=== PATIENT | male | born 1935 | race Caucasian/White ===

== ENCOUNTER 2017-05-04 04:08 | Emergency (ER) | payer OTHER ==
[~2017-05-04] VITALS: Ht 182.9 cm; Wt 86.2 kg
[~2017-05-04 04:08] MED LIST: ANTIVERT25 MG PO; APAP500 PO; ASPIRIN325; CLARITIN10 MG PO; COZAAR 50 MG TA50 M2 PO; DOXYCYCLINE 10100 MG PO; HYCET 7.5 MG-3473 ML PO; IMDUR 30 MG TAB30 M1 PO; LISINOPRIL10 MG PO; LOPID600 MG PO; NIACIN500 MG PO; PROMETHAZINE/C118 ML PO; PROSCAR 5MG TABL5 MG PO; REGLAN 10 MG TA10 MG PO; TOPROL XL25 MG PO; ZOCOR20 MG PO
[2017-05-04] MEDS ORDERED: LIPITOR 20 MG T20 M1 PO (04:29)
== END 2017-05-04 06:06 | disposition home or self-care (01) ==
LOC: ER 04:08
DX: M25.561 Pain in right knee (principal); I10 Essential (primary) hypertension; Z88.0 Allergy status to penicillin; Z87.891 Personal history of nicotine dependence

== ENCOUNTER 2017-05-20 11:22 | Emergency (ER) | payer OTHER ==
[~2017-05-20] VITALS: Ht 182.9 cm; Wt 86.2 kg
--- NOTE | ~2017-05-20 | EKG ---
[place] [address] [address] [facility] [place] [address] ELECTROCARDIOGRAM REPORT Name: COURT CROCKER Theresa Room #: [facility]#: [id number] Admission: 05/20/17 Attend Phys: Discharge: Date of : 31 Report #: [id number] THIS REPORT FOR: //name// [facility] ED Test Date: 2017-05-20 Test Time: 14:23:14 Pat Name: COURT CROCKER Department: Room: Gender: M Telephone Station Installer: KKODJOVI : 1935 Requested By: Staci Henry Order Number: [id number] MD: Paramjit Velazquez Measurements Intervals [place] Rate: 44 P: -36 HI: 288 QRS: -26 QRSD: 97 T: 50 QT: 458 QTc: 392 Interpretive Statements Sinus bradycardia Prolonged HI interval Borderline left axis deviation Abnormal R-wave progression, early transition Compared to ECG 12/23/2016 23:25:06 Sinus rhythm no longer present Electronically Signed On 05-20-2017 15:49:26 CDT by Paramjit Velazquez [email or web address] <ELECTRONICALLY SIGNED> By: Paramjit Velazquez MD 05/20/17 1549 1423 1423 Paramjit Velazquez MD /[place]
[~2017-05-20 11:22] MED LIST changes: -ASPIRIN325; +ASPIRIN325 PO; +LIPITOR 20 MG T20 M1 PO
[2017-05-20 13:17] LABS: ABSOLUTE NEUTROPHILS 6.4 thou/uL (1.4-8.2); EOSINOPHILS 2.5 % (0.0-3.0); HEMATOCRIT 41.6 % (42.0-52.0); HEMOGLOBIN 14.1 gm/dL (14.0-18.0); MANUAL DIFF NO; MCH 29.4 pg (26.0-34.0); MCV 86.4 fL (80.0-100.0); MONOCYTES 8.6 % (1.0-8.0); PLATELET COUNT 231 thou/uL (150-400); POLYS 69.9 % (36.0-66.0); RBC 4.81 mil/uL (4.50-6.00); RDW 14.1 % (10.5-14.5); WBC 9.1 thou/uL (4.0-11.0)
[2017-05-20 13:28] LABS: CALCIUM 8.8 mg/dL (8.5-10.1); CREATININE 1.1 mg/dL (0.7-1.3); POTASSIUM 5.7 mmol/L (3.5-5.1)
[2017-05-20 13:31] LABS: ALBUMIN 3.8 g/dL (3.4-5.0); TOTAL BILIRUBIN 0.4 mg/dL (<0.1-1.0); TOTAL PROTEIN 6.7 g/dL (6.4-8.2)
[2017-05-20 13:32] LABS: PROTIME 10.1 Seconds (9.3-11.4)
== END 2017-05-20 17:15 | disposition home or self-care (01) ==
LOC: ER 11:22
PROVIDERS: Physician Assistant
DX: E87.6 Hypokalemia (principal); R51 Headache; I10 Essential (primary) hypertension; Z88.0 Allergy status to penicillin; Z87.891 Personal history of nicotine dependence

== ENCOUNTER 2017-11-25 00:16 | Emergency (ER) | payer OTHER ==
[~2017-11-25] VITALS: Ht 182.9 cm; Wt 86.2 kg
--- NOTE | ~2017-11-25 | EKG ---
[place] [address] [address] [facility] [employer] [place] [address] ELECTROCARDIOGRAM REPORT Name: COURT CROCKER Room #: [facility]#: [id number] Admission: 11/25/17 Attend Phys: Discharge: 11/25/17 Date of : 31 Report #: [id number] THIS REPORT FOR: //name// [facility] ED Test Date: 2017-11-25 Test Time: 00:25:57 Pat Name: COURT CROCKER Department: Room: Gender: M Enrollment Consultant: BRADEN : 1935 Requested By: Mone Garrett Order Number: [id number] MD: Jaquan Yi Measurements Intervals [place] Rate: 49 P: -68 VT: 281 QRS: -30 QRSD: 104 T: 45 QT: 458 QTc: 414 Interpretive Statements Sinus bradycardia Prolonged [place] interval Left axis deviation Abnormal R-wave progression, early transition Baseline wander in lead(s) V1 Compared to ECG 07/12/2017 09:56:18 No significant change was found Electronically Signed On 11-25-2017 8:46:35 CDT by Jaquan Yi [email or web address] <ELECTRONICALLY SIGNED> By: Jaquan Yi MD, [facility] 11/25/17 0846 0025 0025 Jaquan Yi MD, [facility] /EPI
[~2017-11-25 00:16] MED LIST changes: +CENTRUM SILVER1 EAC2 PO; +COLACE100 MG PO; +COZAAR 25 MG TA25 MG PO; +FLONASE 0.05%50 MCG NASAL; +HYDROCHLOROTH12.5 M1 PO; +LORATIDINE 10 M10 M1 PO; +ONDANSETRON HCL4 M2 PO; +TYLENOL325 MG PO; +VITAMINC500 PO
[2017-11-25] MEDS ORDERED: METOPROLOL TART25 MG (00:35)
[2017-11-25 00:57] LABS: ABSOLUTE NEUTROPHILS 6.2 thou/uL (1.4-8.2); EOSINOPHILS 5.6 % (0.0-3.0); HEMOGLOBIN 13.4 gm/dL (14.0-18.0); LYMPHOCYTES 22.5 % (24.0-44.0); MCH 29.9 pg (26.0-34.0); MCHC 34.5 g/dL (28.0-37.0); MCV 86.6 fL (80.0-100.0); MONOCYTES 10.5 % (1.0-8.0); PLATELET COUNT 264 thou/uL (150-400); POLYS 60.4 % (36.0-66.0); RDW 13.9 % (10.5-14.5); WBC 10.2 thou/uL (4.0-11.0)
[2017-11-25 01:01] LABS: ANION GAP 11 mmol/L (7-16); BUN 25 mg/dL (7-18); CHLORIDE 105 mmol/L (98-107); CO2 21 mmol/L (21-32); CREATININE 1.1 mg/dL (0.7-1.3); POTASSIUM 4.7 mmol/L (3.5-5.1); SODIUM 137 mmol/L (136-145)
[2017-11-25 01:09] LABS: TROPONIN-I < 0.04 ng/mL (<0.06)
[2017-11-25 01:10] LABS: GLUCOSE 94 mg/dL (74-106)
== END 2017-11-25 03:44 | disposition home or self-care (01) ==
LOC: ER 00:16
PROVIDERS: Emergency Medicine
DX: R07.9 Chest pain, unspecified (principal); I10 Essential (primary) hypertension; Z88.0 Allergy status to penicillin; Z87.891 Personal history of nicotine dependence

== ENCOUNTER 2018-03-09 00:32 | Inpatient (IN) | payer OTHER ==
[2018-03-09] VITALS (11 sets, daily range): BP systolic 134–167; BP diastolic 56–82
[~2018-03-09] VITALS: Ht 182.9 cm; Wt 86.2 kg
--- NOTE | ~2018-03-09 | 2DMMODE ---
[facility] [address] [place] [address] 2 D/M-MODE ECHOCARDIOGRAM Name: COURT CROCKER Room #: [facility] .R.#: [id number] Admission: 03/09/18 Attend Phys: Wai Ayala MD Discharge: Date of : 31 Date of Service: 03/10/18 1309 Report #: [id number] THIS REPORT FOR: //name// APPROVED REPORT Study performed: 03/10/2018 11:58:30 EXAM: Comprehensive 2D, Doppler, and color-flow Echocardiogram Patient Location: Echo lab Room #: [facility] Status: routine BSA: 2.08 HR: 47 bpm BP: 114/61 mmHg Rhythm: NSR Other Information Study Quality: Adequate Indications CAD Syncope Hypertension/HDD 2D Dimensions RVDd: 39.72 mm LVEF(%): 61.90 (>50%) IVSd: 8.62 (7-11mm) LVOT Diam: 23.18 (18-24mm) LVDd: 56.05 mm PWd: 10.01 (7-11mm) Ascending Ao: 31.16 (22-36mm) LVDs: 37.14 (25-40mm) Aortic Root: 32.68 mm IVC: 19.00 mm Flowers's LVEF: 61.90 % Volumes Left Atrial Volume (Systole) Single Plane 4CH: 59.83 mL Single Plane 2CH: 48.88 mL LA ESV Index: 30.00 mL/m2 Aortic Valve AoV Peak Chester.: 1.19 m/s AO Peak Gr.: 5.66 mmHg LVOT Max P.86 mmHg LVOT Max V: 0.98 m/s SVETLANA Vmax: 3.48 cm2 Mitral Valve [facility] [address] [place] [address] 2 D/M-MODE ECHOCARDIOGRAM Name: COURT CROCKER Room #: 358-[facility].#: [id number] Admission: 03/09/18 Attend Phys: Wai Ayala MD Discharge: Date of : 31 Date of Service: 03/10/18 1309 Report #: [id number] E/A Ratio: 0.7 MV Decel. Time: 415.86 ms MV E Max Chester.: 0.61 m/s MV A Chester.: 0.84 m/s MV PHT: 120.60 ms IVRT: 147.64 ms Pulmonary Valve PV Peak Chester.: 1.11 m/s PV Peak Gr.: 4.91 mmHg Pulmonary Vein P Vein S: 0.36 m/s P Vein A: 0.31 m/s P Vein D: 0.25 m/s P Vein A Dur.: 147.6 msec P Vein S/D Ratio: 1.44 Tricuspid Valve TR Peak Chester.: 2.59 m/s TR Peak Gr.: 26.86 mmHg PA Pressure: 30.00 mmHg Left Ventricle The left ventricle is normal size. There is normal LV segmental wall motion. There is normal left ventricular wall thickness. The left ventricular systolic function is normal. The left ventricular ejection fraction is within the normal range. LVEF is 55-60%. Grade I - abnormal relaxation pattern. Right Ventricle The right ventricle is normal size. The right ventricular systolic function is normal. Atria The left atrium size is normal. The right atrium size is normal. Aortic Valve The aortic valve is normal in structure. Trace aortic regurgitation. There is no aortic valvular stenosis. Mitral Valve The mitral valve is normal in structure. Trace mitral regurgitation. No evidence of mitral valve stenosis. Tricuspid Valve The tricuspid valve is normal in structure. There is trace tricuspid regurgitation. Estimated PAP 30 mmHg. There is no pulmonary [facility] [address] [place] [address] 2 D/M-MODE ECHOCARDIOGRAM Name: COURT CROCKER Room #: [facility]#: [id number] Admission: 03/09/18 Attend Phys: Wai Ayala MD Discharge: Date of : 31 Date of Service: 03/10/18 1309 Report #: [id number] hypertension. Pulmonic Valve The pulmonary valve is normal in structure. Trace pulmonic regurgitation. Great Vessels The aortic root is normal in size. IVC is normal in size and collapses >50% with inspiration. Pericardium There is no pericardial effusion. <Conclusion> The left ventricular systolic function is normal. There is normal LV segmental wall motion. LVEF is 55-60%. Mild diastolic dysfunction The aortic valve is normal in structure. Trace aortic regurgitation, no stenosis The mitral valve is normal in structure. Trace mitral regurgitation. There is trace tricuspid regurgitation. Estimated pulmonary artery pressure of 30 mmHg. There is no pericardial effusion. <ELECTRONICALLY SIGNED> By: Jaquan Yi MD, FACC 03/10/18 1309 1309 1309 Jaquan Yi MD, FACC /INF
--- NOTE | ~2018-03-09 | EKG ---
[address] [place] [address] ELECTROCARDIOGRAM REPORT Name: AJ CROCKERNIS Theresa Room #: 358-P [facility] IN M.R.#: [id number] Admission: 03/09/18 Attend Phys: Sloan Waller MD Discharge: Date of : 31 Report #: [id number] THIS REPORT FOR: //name// [facility] ED Test Date: 2018-03-09 Test Time: 00:51:18 Pat Name: COURT CROCKER Department: Room: 358 Gender: M Technical Instructor: ROLANDO : 1935 Requested By: Kandice Griffin Order Number: [id number] MD: Robert Frias Measurements Intervals [place] Rate: 43 P: 46 NM: 291 QRS: -17 QRSD: 100 T: 61 QT: 468 QTc: 396 Interpretive Statements Sinus bradycardia Prolonged NM interval Borderline left axis deviation Borderline low voltage, extremity leads Baseline wander in lead(s) V4,V6 Compared to ECG 11/25/2017 00:25:57 No significant changes Electronically Signed On 03-09-2018 11:06:03 CDT by Robert Frias [email or web address] <ELECTRONICALLY SIGNED> By: Robert Frias MD 03/09/18 1106 0051 0051 Robert Frias MD /EPI
[~2018-03-09 00:32] MED LIST changes: +METOPROLOL TART25 MG
[2018-03-09 01:30] LABS: ABSOLUTE NEUTROPHILS 6.3 thou/uL (1.4-8.2); EOSINOPHILS 3.1 % (0.0-3.0); HEMATOCRIT 40.8 % (42.0-52.0); HEMOGLOBIN 13.7 gm/dL (14.0-18.0); LYMPHOCYTES 23.3 % (24.0-44.0); MCH 29.1 pg (26.0-34.0); MCHC 33.6 g/dL (28.0-37.0); MCV 86.5 fL (80.0-100.0); MONOCYTES 8.6 % (1.0-8.0); PLATELET COUNT 211 thou/uL (150-400); RBC 4.72 mil/uL (4.50-6.00); RDW 13.7 % (10.5-14.5); WBC 9.8 thou/uL (4.0-11.0)
[2018-03-09 01:33] LABS: CALCIUM 8.6 mg/dL (8.5-10.1); CREATININE 1.2 mg/dL (0.7-1.3); POTASSIUM 4.9 mmol/L (3.5-5.1)
[2018-03-09 13:15] LABS: ABSOLUTE NEUTROPHILS 6.6 thou/uL (1.4-8.2); EOSINOPHILS 2.3 % (0.0-3.0); HEMATOCRIT 40.2 % (42.0-52.0); HEMOGLOBIN 13.7 gm/dL (14.0-18.0); LYMPHOCYTES 18.8 % (24.0-44.0); MCH 29.4 pg (26.0-34.0); MCHC 34.1 g/dL (28.0-37.0); MCV 86.3 fL (80.0-100.0); MONOCYTES 7.6 % (1.0-8.0); PLATELET COUNT 202 thou/uL (150-400); POLYS 70.3 % (36.0-66.0); RBC 4.66 mil/uL (4.50-6.00); RDW 13.8 % (10.5-14.5); WBC 9.4 thou/uL (4.0-11.0)
[2018-03-09 13:29] LABS: ANION GAP 7 mmol/L (7-16); BUN 24 mg/dL (7-18); CALCIUM 9.2 mg/dL (8.5-10.1); CHLORIDE 105 mmol/L (98-107); CO2 24 mmol/L (21-32); GLUCOSE 140 mg/dL (74-106); MAGNESIUM 1.7 mg/dL (1.8-2.4); SODIUM 136 mmol/L (136-145); TROPONIN-I <0.06 ng/mL (<0.06)
[2018-03-10 05:31] LABS: CALCIUM 9.2 mg/dL (8.5-10.1); CREATININE 1.1 mg/dL (0.7-1.3); POTASSIUM 4.9 mmol/L (3.5-5.1)
[2018-03-10 05:37] LABS: ABSOLUTE NEUTROPHILS 6.1 thou/uL (1.4-8.2); BASOPHILS 0.5 % (0.0-2.0); EOSINOPHILS 3.4 % (0.0-3.0); HEMATOCRIT 39.4 % (42.0-52.0); HEMOGLOBIN 13.4 gm/dL (14.0-18.0); LYMPHOCYTES 20.8 % (24.0-44.0); MCH 29.4 pg (26.0-34.0); MCV 86.3 fL (80.0-100.0); MONOCYTES 8.7 % (1.0-8.0); PLATELET COUNT 212 thou/uL (150-400); POLYS 66.6 % (36.0-66.0); RBC 4.57 mil/uL (4.50-6.00); WBC 9.1 thou/uL (4.0-11.0)
[2018-03-10 05:45] VITALS: BP 121/67
[2018-03-10 05:47] VITALS: BP 125/61
[2018-03-10 05:50] VITALS: BP 128/59
[2018-03-10 07:37] VITALS: BP 114/61
[2018-03-10 16:20] VITALS: BP 114/61
== END 2018-03-10 17:03 | disposition home health service (06) | DRG 310 ==
LOC: ER 00:32 → 3W 03:32 → EROBS 03:32 → 3W 04:24 → ENTRNSPT 03-10 16:40 → 3W 03-10 17:03
PROVIDERS: Emergency Medicine; Hospitalist
DX: R00.1 Bradycardia, unspecified (principal); I10 Essential (primary) hypertension; R20.2 Paresthesia of skin; Z60.2 Problems related to living alone; N40.0 Benign prostatic hyperplasia without lower urinary tract symptoms; I25.10 Atherosclerotic heart disease of native coronary artery without angina pectoris; Z95.5 Presence of coronary angioplasty implant and graft; Z88.0 Allergy status to penicillin; Z87.891 Personal history of nicotine dependence; Z79.82 Long term (current) use of aspirin; Z79.899 Other long term (current) drug therapy
CPT/HCPCS: 10779

== ENCOUNTER 2018-07-15 16:07 | Emergency (ER) | payer OTHER ==
[~2018-07-15] VITALS: Ht 182.9 cm; Wt 86.2 kg
--- NOTE | ~2018-07-15 | EKG ---
[address] [address] ELECTROCARDIOGRAM REPORT Name: COURT CROCKER Room #: [facility]#: [id number] Admission: 07/15/18 Attend Phys: Discharge: 07/15/18 Date of : 31 Report #: [id number] THIS REPORT FOR: //name// [facility] ED Test Date: 2018-07-15 Test Time: 16:47:14 Pat Name: COURT CROCKER Department: Room: Gender: M Deputy Court Clerk: ROMÁN : 1935 Requested By: Lalita Rossi Order Number: [id number] MD: Robert Frias Measurements Intervals [place] Rate: 53 P: 15 MN: 266 QRS: -37 QRSD: 101 T: 63 QT: 421 QTc: 396 Interpretive Statements Sinus rhythm Atrial premature complex Prolonged [place] interval Left axis deviation Compared to ECG 03/09/2018 00:51:18 Atrial premature complex(es) now present Sinus bradycardia no longer present Electronically Signed On 07-16-2018 8:17:16 DELIVERY REP by Robert Frias [email or web address] <ELECTRONICALLY SIGNED> By: Robert Frias MD 07/16/18 0817 46 46 Robert Frias MD /[place]
[2018-07-15 17:01] LABS: ABSOLUTE NEUTROPHILS 6.6 thou/uL (1.4-8.2); BASOPHILS 1.1 % (0.0-2.0); EOSINOPHILS 3.1 % (0.0-3.0); HEMATOCRIT 43.5 % (42.0-52.0); HEMOGLOBIN 14.7 gm/dL (14.0-18.0); LYMPHOCYTES 17.2 % (24.0-44.0); MCH 29.2 pg (26.0-34.0); MCHC 33.7 g/dL (28.0-37.0); MCV 86.5 fL (80.0-100.0); MONOCYTES 9.2 % (1.0-8.0); PLATELET COUNT 269 thou/uL (150-400); POLYS 69.4 % (36.0-66.0); RBC 5.02 mil/uL (4.50-6.00); RDW 14.2 % (10.5-14.5); WBC 9.4 thou/uL (4.0-11.0)
[2018-07-15 17:12] LABS: ANION GAP 9 mmol/L (7-16); BUN 32 mg/dL (7-18); CALCIUM 8.8 mg/dL (8.5-10.1); CHLORIDE 105 mmol/L (98-107); CO2 22 mmol/L (21-32); CREATININE 1.1 mg/dL (0.7-1.3); GLUCOSE 140 mg/dL (74-106); POTASSIUM 5.4 mmol/L (3.5-5.1); SODIUM 136 mmol/L (136-145)
[2018-07-15 17:20] LABS: TROPONIN-I <0.06 ng/mL (<0.06)
[2018-07-15 17:34] LABS: ALBUMIN 3.7 g/dL (3.4-5.0); DIRECT BILIRUBIN 0.1 mg/dL (<0.1-0.3); TOTAL BILIRUBIN 0.4 mg/dL (<0.1-1.0)
[2018-07-15 18:49] LABS: URINE BILIRUBIN NEGATIVE (Negative); URINE BLOOD NEGATIVE (Negative); URINE CLARITY CLEAR; URINE COLOR YELLOW; URINE GLUCOSE-RANDOM* NEGATIVE (Negative); URINE KETONES NEGATIVE (Negative); URINE LEUKOCYTES-REFLEX NEGATIVE (Negative); URINE NITRITE-REFLEX NEGATIVE (Negative); URINE PROTEIN (DIPSTICK) NEGATIVE (Negative); URINE UROBILINOGEN 0.2 E.U./dl (0.2-1.0)
[2018-07-15] MEDS ORDERED: ZOFRAN ODT4 MG PO (19:08)
[2018-07-15 19:32] VITALS: BP 149/61
== END 2018-07-15 19:32 | disposition home or self-care (01) ==
LOC: ER 16:07
PROVIDERS: Physician Assistant; Student in an Organized Health Care Education/Training Program
DX: R11.2 Nausea with vomiting, unspecified (principal); R19.7 Diarrhea, unspecified; I10 Essential (primary) hypertension; Z87.891 Personal history of nicotine dependence; Z88.0 Allergy status to penicillin; Z95.5 Presence of coronary angioplasty implant and graft; Z96.651 Presence of right artificial knee joint

== ENCOUNTER → 2018-08-22 | Outpatient (CLI) | payer OTHER ==
[~2018-08-22] MED LIST changes: +ZOFRAN ODT4 MG PO
== END ==
LOC: ULTRA 09:47
DX: I10 Essential (primary) hypertension (principal); R42 Dizziness and giddiness; R10.819 Abdominal tenderness, unspecified site; R55 Syncope and collapse

== ENCOUNTER 2018-08-23 18:01 | Emergency (ER) | payer OTHER ==
[~2018-08-23] VITALS: Ht 185.4 cm; Wt 88.5 kg
[2018-08-23 19:02] LABS: ABSOLUTE NEUTROPHILS 5.6 thou/uL (1.4-8.2); BASOPHILS 0.8 % (0.0-2.0); HEMATOCRIT 41.1 % (42.0-52.0); HEMOGLOBIN 14.1 gm/dL (14.0-18.0); LYMPHOCYTES 20.3 % (24.0-44.0); MCH 29.5 pg (26.0-34.0); MCHC 34.3 g/dL (28.0-37.0); MCV 86.1 fL (80.0-100.0); MONOCYTES 8.8 % (1.0-8.0); PLATELET COUNT 227 thou/uL (150-400); POLYS 67.1 % (36.0-66.0); RBC 4.77 mil/uL (4.50-6.00); RDW 14.1 % (10.5-14.5); WBC 8.4 thou/uL (4.0-11.0)
[2018-08-23 19:09] LABS: CALCIUM 8.9 mg/dL (8.5-10.1); CREATININE 1.4 mg/dL (0.7-1.3); POTASSIUM 5.2 mmol/L (3.5-5.1); SALICYLATE 7.5 mg/dL (2.8-20.0)
[2018-08-23 20:02] VITALS: BP 157/74
== END 2018-08-23 20:02 | disposition home or self-care (01) ==
LOC: ER 18:01
PROVIDERS: Student in an Organized Health Care Education/Training Program
DX: R51 Headache (principal); I10 Essential (primary) hypertension; Z95.5 Presence of coronary angioplasty implant and graft; Z96.651 Presence of right artificial knee joint; Z87.891 Personal history of nicotine dependence; Z88.0 Allergy status to penicillin

== ENCOUNTER → 2018-09-10 | Outpatient (CLI) | payer OTHER ==
[2018-09-10 09:38] LABS: CREATININE 1.3 mg/dL (0.7-1.3)
== END ==
LOC: MRI 08:59
PROVIDERS: Otolaryngology
DX: J34.1 Cyst and mucocele of nose and nasal sinus (principal); H90.3 Sensorineural hearing loss, bilateral; H93.19 Tinnitus, unspecified ear

== ENCOUNTER 2019-01-16 16:28 | Emergency (ER) | payer OTHER ==
[~2019-01-16] VITALS: Ht 182.9 cm; Wt 88.5 kg
[2019-01-16 17:25] LABS: HEMATOCRIT 40.4 % (42.0-52.0); HEMOGLOBIN 13.6 gm/dL (14.0-18.0); MCH 29.3 pg (26.0-34.0); MCHC 33.6 g/dL (28.0-37.0); RBC 4.65 mil/uL (4.50-6.00); RDW 13.8 % (10.5-14.5)
[2019-01-16 17:35] LABS: ANION GAP 12 mmol/L (7-16); BUN 34 mg/dL (7-18); CALCIUM 8.8 mg/dL (8.5-10.1); CHLORIDE 107 mmol/L (98-107); CO2 21 mmol/L (21-32); CREATININE 1.1 mg/dL (0.7-1.3); GLUCOSE 92 mg/dL (74-106); POTASSIUM 5.4 mmol/L (3.5-5.1); SODIUM 140 mmol/L (136-145)
[2019-01-16 17:44] LABS: ALBUMIN 3.7 g/dL (3.4-5.0); SGOT 19 U/L (15-37); SGPT 20 U/L (30-65); TOTAL BILIRUBIN 0.5 mg/dL (<0.1-1.0); TOTAL PROTEIN 6.9 g/dL (6.4-8.2); TROPONIN-I <0.06 ng/mL (<0.06)
[2019-01-16 18:02] LABS: URINE BILIRUBIN NEGATIVE (Negative); URINE BLOOD NEGATIVE (Negative); URINE CLARITY CLEAR; URINE COLOR YELLOW; URINE GLUCOSE-RANDOM* NEGATIVE (Negative); URINE KETONES NEGATIVE (Negative); URINE LEUKOCYTES-REFLEX NEGATIVE (Negative); URINE NITRITE-REFLEX NEGATIVE (Negative); URINE PROTEIN (DIPSTICK) NEGATIVE (Negative)
[2019-01-16 18:34] VITALS: BP 137/63
--- NOTE | 2019-01-17 11:03 | EKG ---
[address] [place] [address] ELECTROCARDIOGRAM REPORT Name: COURT CROCKER Room #: [facility]#: [id number] ������������������ Admission: 01/16/19 ������������������ Attend Phys: Discharge: 01/16/19 ������������������ Date of : 31 Report #: [id number] ����������������������������������������������������������������� [id number] THIS REPORT FOR: //name// [facility] ED Test Date: 2019-01-16 Test Time: 16:43:35 Pat Name: COURT CROCKER Department: Room: Gender: M Transmission Maintenance Supervisor: VANI : 1935 Requested By: Lalita Rossi Order Number: [id number] MD: Robert Frias Measurements Intervals [place] Rate: 55 P: 10 WV: 226 QRS: -27 QRSD: 97 T: 54 QT: 412 QTc: 394 Interpretive Statements Sinus rhythm Prolonged [place] interval Borderline left axis deviation Borderline low voltage, extremity leads Compared to ECG 07/15/2018 16:47:14 Atrial premature complex(es) no longer present Electronically Signed On 01-17-2019 11:03:26 CDT by Robert Frias [email or web address] ��������������������������������������������� <ELECTRONICALLY SIGNED> ���������������������������������������� By: Robert Frias MD ��������������������������������������������� 01/17/19 1103 42 42 Robert Frias MD /[place]
== END 2019-01-16 18:34 | disposition home or self-care (01) ==
LOC: ER 16:28
PROVIDERS: Student in an Organized Health Care Education/Training Program
DX: R20.2 Paresthesia of skin (principal); R42 Dizziness and giddiness; R53.1 Weakness; R20.0 Anesthesia of skin; I10 Essential (primary) hypertension; Z96.651 Presence of right artificial knee joint; Z95.5 Presence of coronary angioplasty implant and graft; Z87.891 Personal history of nicotine dependence; Z88.0 Allergy status to penicillin

== ENCOUNTER 2019-03-18 08:36 | Emergency (ER) | payer OTHER ==
[~2019-03-18] VITALS: Ht 182.9 cm; Wt 86.2 kg
[2019-03-18 08:49] LABS: ABSOLUTE NEUTROPHILS 5.4 thou/uL (1.4-8.2); EOSINOPHILS 3.6 % (0.0-3.0); HEMATOCRIT 42.4 % (42.0-52.0); HEMOGLOBIN 14.3 gm/dL (14.0-18.0); LYMPHOCYTES 19.7 % (24.0-44.0); MCH 28.9 pg (26.0-34.0); MCHC 33.6 g/dL (28.0-37.0); MCV 85.9 fL (80.0-100.0); MONOCYTES 7.2 % (1.0-8.0); PLATELET COUNT 217 thou/uL (150-400); POLYS 68.5 % (36.0-66.0); RBC 4.94 mil/uL (4.50-6.00); RDW 13.7 % (10.5-14.5); WBC 7.9 thou/uL (4.0-11.0)
[2019-03-18 08:56] LABS: ANION GAP 11 mmol/L (7-16); BUN 21 mg/dL (7-18); CALCIUM 10.1 mg/dL (8.5-10.1); CHLORIDE 103 mmol/L (98-107); CO2 22 mmol/L (21-32); CREATININE 1.2 mg/dL (0.7-1.3); GLUCOSE 118 mg/dL (74-106); POTASSIUM 4.9 mmol/L (3.5-5.1); SODIUM 136 mmol/L (136-145)
[2019-03-18] MEDS ORDERED: FISH OIL 1,001000 M2 PO (08:58)
[2019-03-18] MEDS ORDERED: NAPROSYN500 MG PO (08:59)
[2019-03-18] MEDS ORDERED: ASPIR 8181 MG PO (08:59)
[2019-03-18] MEDS ORDERED: PROSCAR 5MG TABL5 MG PO (09:03)
[2019-03-18 09:05] LABS: TROPONIN-I <0.06 ng/mL (<0.06)
[2019-03-18 11:35] VITALS: BP 148/49
--- NOTE | 2019-03-19 07:23 | EKG ---
[place] [address] [facility] [place] [address] ELECTROCARDIOGRAM REPORT Name: COURT CROCKER Room #: [facility]#: [id number] Admission: 03/18/19 Attend Phys: Discharge: 03/18/19 Date of : 31 Report #: [id number] THIS REPORT FOR: //name// [facility] ED Test Date: 2019-03-18 Test Time: 08:15:55 Pat Name: COURT CROCKER Department: Room: Gender: M Master Plumber: PIO : 1935 Requested By: Wilder El Order Number: [id number] MD: Jaquan Yi Measurements Intervals [place] Rate: 53 P: 37 [place]: 187 QRS: -24 QRSD: 102 T: 63 QT: 415 QTc: 390 Interpretive Statements Sinus rhythm Borderline left axis deviation Baseline wander in lead(s) V5 Compared to ECG 01/16/2019 16:43:35 First degree AV block no longer present Electronically Signed On 03-19-2019 7:23:30 CDT by Jaquan Yi [email or web address] <ELECTRONICALLY SIGNED> By: Jaquan Yi MD, [facility] 03/19/19 07 4 4 Jaquan Yi MD, [facility] /EPI
== END 2019-03-18 11:35 | disposition home or self-care (01) ==
LOC: ER 08:36
PROVIDERS: Emergency Medicine
DX: R07.2 Precordial pain (principal); I10 Essential (primary) hypertension; E78.5 Hyperlipidemia, unspecified; E78.00 Pure hypercholesterolemia, unspecified; Z87.891 Personal history of nicotine dependence; Z88.0 Allergy status to penicillin; Z95.5 Presence of coronary angioplasty implant and graft; Z96.651 Presence of right artificial knee joint

== ENCOUNTER → 2019-07-16 | Outpatient (CLI) | payer OTHER ==
[~2019-07-16] MED LIST changes: +ASPIR 8181 MG PO; +FISH OIL 1,001000 M2 PO; +NAPROSYN500 MG PO
[2019-07-16 08:41] LABS: CREATININE 1.2 mg/dL (0.7-1.3)
== END ==
LOC: CAT 08:03
PROVIDERS: Surgery
DX: I65.23 Occlusion and stenosis of bilateral carotid arteries (principal)

== ENCOUNTER 2020-03-30 17:45 | Emergency (ER) | payer OTHER ==
[~2020-03-30] VITALS: Ht 182.9 cm; Wt 86.2 kg
[2020-03-30] MEDS ORDERED: FLOMAX0.4 MG PO (18:38)
[2020-03-30] MEDS ORDERED: HYDRALAZINE 5050 MG PO ×2 (18:39→22:28)
[2020-03-30 20:24] LABS: ABSOLUTE NEUTROPHILS 6.2 thou/uL (1.4-8.2); BASOPHILS 1.3 % (0.0-2.0); EOSINOPHILS 2.9 % (0.0-3.0); HEMATOCRIT 39.6 % (42.0-52.0); LYMPHOCYTES 19.4 % (24.0-44.0); MCH 28.4 pg (26.0-34.0); MCHC 32.9 g/dL (28.0-37.0); MCV 86.5 fL (80.0-100.0); MONOCYTES 8.5 % (1.0-8.0); PLATELET COUNT 227 thou/uL (150-400); POLYS 67.9 % (36.0-66.0); RBC 4.58 mil/uL (4.50-6.00); RDW 14.5 % (10.5-14.5); WBC 9.1 thou/uL (4.0-11.0)
[2020-03-30 20:36] LABS: ANION GAP 9 mmol/L (7-16); BUN 21 mg/dL (7-18); CALCIUM 8.7 mg/dL (8.5-10.1); CHLORIDE 106 mmol/L (98-107); CO2 24 mmol/L (21-32); CREATININE 0.9 mg/dL (0.7-1.3); GLUCOSE 99 mg/dL (74-106); POTASSIUM 4.5 mmol/L (3.5-5.1); SODIUM 139 mmol/L (136-145)
[2020-03-30 20:38] LABS: APTT 30.3 Seconds (24.5-32.8); PROTIME 10.7 Seconds (9.3-11.4)
[2020-03-30 20:42] LABS: TROPONIN-I <0.06 ng/mL (<0.06)
[2020-03-30 22:55] VITALS: BP 141/54
--- NOTE | 2020-03-31 09:13 | EKG ---
[facility] [place] [address] ELECTROCARDIOGRAM REPORT Name: COURT CROCKER Room #: [facility]#: [id number] Admission: 03/30/20 Attend Phys: Discharge: 03/30/20 Date of : 31 Report #: [id number] THIS REPORT FOR: cc: Cassie Haddad DNP, Mary E. DNP Couchonnal, Luis F. MD ~ THIS REPORT FOR: //name// [facility] ED Test Date: 2020-03-30 Test Time: 18:26:49 Pat Name: COURT CROCKER Department: Room: Gender: Crop Specialist: : 1935 Requested By: Kandice Griffin Order Number: [id number] MD: Paramjit Velazquez Measurements Intervals [place] Rate: 49 P: 2 SC: 314 QRS: -40 QRSD: 104 T: 40 QT: 452 QTc: 409 Interpretive Statements Sinus bradycardia Atrial premature complex Prolonged [place] interval Left anterior fascicular block Compared to ECG 03/18/2019 08:15:55 Atrial premature complex(es) now present First degree AV block now present Left anterior fascicular block now present Sinus rhythm no longer present Electronically Signed On 03-31-2020 9:13:11 CDT by Paramjit Velazquez [email or web address] <ELECTRONICALLY SIGNED> By: Paramjit Velazquez MD 03/31/20912 25 25 Paramjit Velazquez MD /[place]
== END 2020-03-30 23:35 | disposition home or self-care (01) ==
LOC: ER 17:45
PROVIDERS: Emergency Medicine
DX: I10 Essential (primary) hypertension (principal); E78.5 Hyperlipidemia, unspecified; Z79.899 Other long term (current) drug therapy; Z88.0 Allergy status to penicillin; Z87.891 Personal history of nicotine dependence

== ENCOUNTER 2020-04-11 00:28 | Emergency (ER) | payer OTHER ==
[~2020-04-11] VITALS: Ht 190.5 cm; Wt 86.2 kg
[~2020-04-11 00:28] MED LIST changes: +FLOMAX0.4 MG PO; +HYDRALAZINE 5050 MG PO
[2020-04-11] MEDS ORDERED: NORVASC 2.5 MG2.5 M1 PO (00:36)
[2020-04-11 00:48] LABS: BASOPHILS 1.3 % (0.0-2.0); HEMATOCRIT 40.8 % (42.0-52.0); HEMOGLOBIN 13.8 gm/dL (14.0-18.0); LYMPHOCYTES 24.2 % (24.0-44.0); MCH 29.1 pg (26.0-34.0); MCHC 33.8 g/dL (28.0-37.0); MCV 86.2 fL (80.0-100.0); PLATELET COUNT 226 thou/uL (150-400); POLYS 60.5 % (36.0-66.0); RBC 4.73 mil/uL (4.50-6.00); RDW 14.6 % (10.5-14.5)
[2020-04-11 00:54] LABS: ANION GAP 9 mmol/L (7-16); BUN 25 mg/dL (7-18); CALCIUM 8.8 mg/dL (8.5-10.1); CHLORIDE 105 mmol/L (98-107); CO2 26 mmol/L (21-32); CREATININE 1.4 mg/dL (0.7-1.3); GLUCOSE 100 mg/dL (74-106); POTASSIUM 4.6 mmol/L (3.5-5.1); SODIUM 140 mmol/L (136-145)
[2020-04-11 01:04] LABS: ALBUMIN 3.5 g/dL (3.4-5.0); SGOT 17 U/L (15-37); SGPT 22 U/L (30-65); TOTAL BILIRUBIN 0.5 mg/dL (0.2-1.0); TOTAL PROTEIN 6.7 g/dL (6.4-8.2); TROPONIN-I <0.06 ng/mL (<0.06)
[2020-04-11 04:26] VITALS: BP 145/66
--- NOTE | 2020-04-11 10:20 | EKG ---
[facility] [place] [address] ELECTROCARDIOGRAM REPORT Name: COURT CROCKER Room #: [facility]#: [id number] Admission: 04/11/20 Attend Phys: Discharge: 04/11/20 Date of : 31 Report #: [id number] THIS REPORT FOR: cc: Cassie Haddad DNP, Mary E. DNP Lundgren, Craig H. MD [facility] ~ THIS REPORT FOR: //name// [facility] ED Test Date: 2020-04-11 Test Time: 00:34:41 Pat Name: COURT CROCKER Department: Room: Gender: Professor Of Communication And Writing: [place] [id number] : 1935 Requested By: Adrian Aguillon Order Number: [id number] MD: Jaquan iY Measurements Intervals [place] Rate: 52 P: 0 VA: 338 QRS: -43 QRSD: 100 T: 45 QT: 458 QTc: 426 Interpretive Statements Sinus bradycardia Prolonged [place] interval Left anterior fascicular block Abnormal R-wave progression, early transition Compared to ECG 03/30/2020 18:26:49 No significant change was found Electronically Signed On 04-11-2020 10:20:47 CDT by Jaquan Yi [email or web address] <ELECTRONICALLY SIGNED> By: Jaquan Yi MD, [facility] 04/11/20 1020 0034 0034 Jaquan Yi MD, [facility] /EPI
== END 2020-04-11 04:37 | disposition home or self-care (01) ==
LOC: ER 00:28
PROVIDERS: Emergency Medicine
DX: R07.89 Other chest pain (principal); I10 Essential (primary) hypertension; E78.5 Hyperlipidemia, unspecified; Z98.890 Other specified postprocedural states; Z96.651 Presence of right artificial knee joint; Z95.5 Presence of coronary angioplasty implant and graft; Z79.82 Long term (current) use of aspirin; Z79.899 Other long term (current) drug therapy; Z88.0 Allergy status to penicillin; Z87.891 Personal history of nicotine dependence

== ENCOUNTER 2020-04-16 09:53 | Emergency (ER) | payer OTHER ==
[~2020-04-16] VITALS: Ht 182.9 cm; Wt 81.7 kg
[~2020-04-16 09:53] MED LIST changes: +NORVASC 2.5 MG2.5 M1 PO
[2020-04-16 10:27] LABS: ABSOLUTE NEUTROPHILS 6.9 thou/uL (1.4-8.2); BASOPHILS 1.2 % (0.0-2.0); EOSINOPHILS 1.6 % (0.0-3.0); HEMATOCRIT 41.2 % (42.0-52.0); HEMOGLOBIN 13.7 gm/dL (14.0-18.0); MCHC 33.4 g/dL (28.0-37.0); MCV 86.8 fL (80.0-100.0); MONOCYTES 7.3 % (1.0-8.0); PLATELET COUNT 213 thou/uL (150-400); POLYS 73.9 % (36.0-66.0); RBC 4.74 mil/uL (4.50-6.00); RDW 14.7 % (10.5-14.5); WBC 9.4 thou/uL (4.0-11.0)
[2020-04-16 10:40] LABS: CALCIUM 9.1 mg/dL (8.5-10.1); POTASSIUM 4.2 mmol/L (3.5-5.1)
[2020-04-16 11:51] VITALS: BP 143/60
== END 2020-04-16 11:44 | disposition home or self-care (01) ==
LOC: ER 09:53
PROVIDERS: Emergency Medicine
DX: R20.2 Paresthesia of skin (principal); I10 Essential (primary) hypertension; E78.5 Hyperlipidemia, unspecified; Z79.82 Long term (current) use of aspirin; Z79.899 Other long term (current) drug therapy; Z87.891 Personal history of nicotine dependence; Z88.0 Allergy status to penicillin

== ENCOUNTER 2020-04-29 16:37 | Emergency (ER) | payer OTHER ==
[~2020-04-29] VITALS: Ht 182.9 cm; Wt 81.7 kg
[2020-04-29 17:00] VITALS: BP 91/57
--- NOTE | 2020-04-30 04:20 | NUR ---
04/29/20201944 VERBALIZED UNDERSTANDING OF DISCHARGE INSTRUCTIONS. SON HERE TO TRANSPORT PATIENT HOME. TAKEN TO CAR VIA WHEELCHAIR. BP 175/90, PULSE 54, RESP 20, PULSE OX 100% ON ROOM AIR.
== END 2020-04-29 19:49 | disposition home or self-care (01) ==
LOC: ER 16:37
DX: Z48.01 Encounter for change or removal of surgical wound dressing (principal); I10 Essential (primary) hypertension; E78.5 Hyperlipidemia, unspecified; Z79.82 Long term (current) use of aspirin; Z79.899 Other long term (current) drug therapy; Z87.891 Personal history of nicotine dependence; Z88.0 Allergy status to penicillin

== ENCOUNTER 2020-10-02 08:34 | Emergency (ER) | payer OTHER ==
[~2020-10-02] VITALS: Ht 182.9 cm; Wt 81.7 kg
[2020-10-02] MEDS ORDERED: HYDROCODON-ACE1 EAC7 PO (09:33)
[2020-10-02] MEDS ORDERED: MEDROLDOSEPACK PO (09:33)
[2020-10-02 10:20] VITALS: BP 127/59
== END 2020-10-02 10:20 | disposition home or self-care (01) ==
LOC: ER 08:34
DX: M25.562 Pain in left knee (principal); I10 Essential (primary) hypertension; E78.5 Hyperlipidemia, unspecified; Z87.891 Personal history of nicotine dependence; Z79.82 Long term (current) use of aspirin; Z79.899 Other long term (current) drug therapy; Z88.0 Allergy status to penicillin

== ENCOUNTER 2021-02-26 08:30 | Emergency (ER) | payer OTHER ==
[~2021-02-26] VITALS: Ht 182.9 cm; Wt 81.7 kg
[~2021-02-26 08:30] MED LIST changes: +HYDROCODON-ACE1 EAC7 PO; +MEDROLDOSEPACK PO
[2021-02-26] MEDS ORDERED: PROSCAR 5MG TABL5 M1 PO (08:41)
[2021-02-26] MEDS ORDERED: HYDRALAZINE 5050 MG PO (08:42)
[2021-02-26 09:00] LABS: ABSOLUTE NEUTROPHILS 7.7 thou/uL (1.4-8.2); BASOPHILS 0.9 % (0.0-2.0); EOSINOPHILS 2.6 % (0.0-3.0); HEMATOCRIT 42.2 % (42.0-52.0); LYMPHOCYTES 16.1 % (24.0-44.0); MCH 29.1 pg (26.0-34.0); MCHC 33.2 g/dL (28.0-37.0); MCV 87.7 fL (80.0-100.0); MONOCYTES 6.2 % (1.0-8.0); PLATELET COUNT 225 thou/uL (150-400); POLYS 74.2 % (36.0-66.0); RBC 4.81 mil/uL (4.50-6.00); RDW 13.9 % (10.5-14.5); WBC 10.4 thou/uL (4.0-11.0)
[2021-02-26 09:06] LABS: CALCIUM 9.3 mg/dL (8.5-10.1); CREATININE 1.1 mg/dL (0.7-1.3); POTASSIUM 4.8 mmol/L (3.5-5.1)
[2021-02-26 10:36] VITALS: BP 147/67
== END 2021-02-26 10:38 | disposition home or self-care (01) ==
LOC: ER 08:30
PROVIDERS: Emergency Medicine
DX: I10 Essential (primary) hypertension (principal); R51.0 Headache with orthostatic component, not elsewhere classified; E78.5 Hyperlipidemia, unspecified; F17.210 Nicotine dependence, cigarettes, uncomplicated; Z79.82 Long term (current) use of aspirin; Z79.899 Other long term (current) drug therapy; Z88.0 Allergy status to penicillin

== ENCOUNTER 2021-03-27 14:30 | Emergency (ER) | payer OTHER ==
[~2021-03-27] VITALS: Ht 182.9 cm; Wt 81.7 kg
[~2021-03-27 14:30] MED LIST changes: +PROSCAR 5MG TABL5 M1 PO
[2021-03-27 15:22] LABS: ABSOLUTE NEUTROPHILS 6.8 thou/uL (1.4-8.2); BASOPHILS 0.7 % (0.0-2.0); HEMATOCRIT 34.4 % (42.0-52.0); HEMOGLOBIN 11.2 gm/dL (14.0-18.0); LYMPHOCYTES 15.7 % (24.0-44.0); MCH 28.8 pg (26.0-34.0); MCHC 32.6 g/dL (28.0-37.0); MCV 88.5 fL (80.0-100.0); MONOCYTES 7.9 % (1.0-8.0); PLATELET COUNT 261 thou/uL (150-400); POLYS 72.7 % (36.0-66.0); RBC 3.89 mil/uL (4.50-6.00); RDW 14.1 % (10.5-14.5); WBC 9.3 thou/uL (4.0-11.0)
[2021-03-27 15:34] VITALS: BP 140/63
== END 2021-03-27 15:35 | disposition home or self-care (01) ==
LOC: ER 14:30
PROVIDERS: Nurse Practitioner
DX: S70.02XA Contusion of left hip, initial encounter (principal); M25.552 Pain in left hip; I10 Essential (primary) hypertension; E78.5 Hyperlipidemia, unspecified; Z79.2 Long term (current) use of antibiotics; Z79.82 Long term (current) use of aspirin; Z79.899 Other long term (current) drug therapy; Z87.891 Personal history of nicotine dependence; Z88.0 Allergy status to penicillin; X50.1XXA Overexertion from prolonged static or awkward postures, initial encounter; Y93.89 Activity, other specified; Y92.89 Other specified places as the place of occurrence of the external cause; Y99.8 Other external cause status

== ENCOUNTER 2021-04-29 06:32 | Emergency (ER) | payer OTHER ==
[~2021-04-29] VITALS: Ht 182.9 cm; Wt 81.7 kg
[2021-04-29 06:39] VITALS: BP 146/71
[2021-04-29 08:07] LABS: ABSOLUTE NEUTROPHILS 5.3 thou/uL (1.4-8.2); BASOPHILS 1.1 % (0.0-2.0); HEMOGLOBIN 12.8 gm/dL (14.0-18.0); LYMPHOCYTES 13.2 % (24.0-44.0); MCH 29.1 pg (26.0-34.0); MCHC 32.9 g/dL (28.0-37.0); MCV 88.5 fL (80.0-100.0); MONOCYTES 7.6 % (1.0-8.0); PLATELET COUNT 231 thou/uL (150-400); POLYS 74.1 % (36.0-66.0); RBC 4.41 mil/uL (4.50-6.00); RDW 14.2 % (10.5-14.5); WBC 7.2 thou/uL (4.0-11.0)
== END 2021-04-29 08:45 | disposition home or self-care (01) ==
LOC: ER 06:32
PROVIDERS: Emergency Medicine
DX: R21 Rash and other nonspecific skin eruption (principal); H57.12 Ocular pain, left eye; H57.89 Other specified disorders of eye and adnexa; I10 Essential (primary) hypertension; E78.5 Hyperlipidemia, unspecified; F17.210 Nicotine dependence, cigarettes, uncomplicated; Z79.899 Other long term (current) drug therapy; Z95.1 Presence of aortocoronary bypass graft; Z95.0 Presence of cardiac pacemaker; Z98.890 Other specified postprocedural states

== ENCOUNTER 2021-05-14 11:42 | Emergency (ER) | payer OTHER ==
[~2021-05-14] VITALS: Ht 182.9 cm; Wt 81.7 kg
[2021-05-14] MEDS ORDERED: REGLAN 5 MG TAB5 MG PO (14:53)
[2021-05-14 15:19] VITALS: BP 165/83
== END 2021-05-14 15:35 | disposition home or self-care (01) ==
LOC: ER 11:42
DX: R51.9 Headache, unspecified (principal); R42 Dizziness and giddiness; I10 Essential (primary) hypertension; E78.5 Hyperlipidemia, unspecified; Z88.0 Allergy status to penicillin; Z79.82 Long term (current) use of aspirin; Z79.899 Other long term (current) drug therapy; Z95.1 Presence of aortocoronary bypass graft; Z95.0 Presence of cardiac pacemaker; Z98.890 Other specified postprocedural states